=== PATIENT | male | born 1955 | race Caucasian/White ===

== ENCOUNTER → 2017-06-09 | Outpatient (CLI) | payer MEDICARE, OTHER ==
--- NOTE | 2017-06-09 16:18 | RADIOLOGY REPORT (SQ) ---
EXAM DESCRIPTION: FOOT RIGHT COMPLETE COMPLETED DATE/TIME: 06/09/2017 1:07 pm REASON FOR STUDY: PAIN IN RIGHT FOOT,PARESTHESIA OF SKIN M79.671 PAIN IN RIGHT FOOT R20.2 PARESTHE ARAM OF SKIN COMPARISON: None. NUMBER OF VIEWS: Three views. TECHNIQUE: AP, lateral and oblique radiographic images acquired of the right foot. LIMITATIONS: None. FINDINGS: MINERALIZATION: Normal. BONES: No acute fracture or dislocation. No worrisome bone lesions. JOINTS: No effusions. SOFT TISSUES: There is considerable soft tissue swelling over the 1st metatarsal-phalangeal joint. T here are no significant marginal erosions in the adjacent bones, however. OTHER: No other significant finding. IMPRESSION: Soft tissue swelling at the 1st metatarsal-phalangeal joint. Is there clinical evidence of or history of gout? TECHNICAL DOCUMENTATION: JOB ID: [id number] [employer]- All Rights Reserved
== END ==
LOC: OD 12:50
PROVIDERS: ATTEND Family Medicine
DX: M79.671 Pain in right foot (principal); R20.2 Paresthesia of skin